=== PATIENT | female | born 1960 ===

== ENCOUNTER 2022-01-31 12:45 | Outpatient (CLI) | payer OTHER | END 2022-01-31 12:56 | disposition home or self-care (01) | LOC: RX STUDY 12:45 | DX: N36.9 Urethral disorder, unspecified (principal) ==

== ENCOUNTER 2022-03-28 09:17 | Outpatient (CLI) | payer OTHER | END 2022-03-28 09:27 | disposition home or self-care (01) | LOC: TOM 09:17 | DX: N39.0 Urinary tract infection, site not specified (principal); N35.028 Other post-traumatic urethral stricture, female ==